=== PATIENT | male | born 1980 | race Caucasian/White ===

== ENCOUNTER 2017-02-16 09:33 | Emergency (ER) | payer BC ==
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
[2017-02-16] MEDS ORDERED: Ketorolac 60 MG/2 ML SDV IM ONE (10:47)
[2017-02-16 11:16] VITALS: BP 110/66
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
== END 2017-02-16 11:15 | disposition home or self-care (01) ==
LOC: MW.ED 09:33
DX: S20.211A Contusion of right front wall of thorax, initial encounter (principal); I10 Essential (primary) hypertension; Z79.899 Other long term (current) drug therapy; V86.59XA Driver of other special all-terrain or other off-road motor vehicle injured in nontraffic accident, initial encounter
CPT/HCPCS: 71101; 96372; 99283; J1885; 99282